=== PATIENT | female | born 1990 | race Caucasian/White ===

== ENCOUNTER 2024-05-31 08:31 | Inpatient (IN) | payer MEDICAID, OTHER ==
[~2024-05-31] VITALS: Ht 165.1 cm; Wt 61.7 kg
[2024-05-31] MEDS: ONDANSETRON HCL 4 MG/2 ML VIAL IV ONE ×2 (08:48→10:18)
[2024-05-31] MEDS: PANTOPRAZOLE 40 MG/10 ML VIAL INJ IV ONE (08:48)
[2024-05-31] MEDS: SODIUM CHLORIDE 0.9% 1,000 ML IV ONE ×2 (08:55→10:42)
[2024-05-31] MEDS: MORPHINE SULFATE 4 MG/ML SYR/VIAL IV ONE ×2 (08:55→10:20)
[2024-05-31 08:57] VITALS: PULSE 61; RESP 16; O2SAT 98
[2024-05-31 09:09] LABS: Basophils # (auto) 0 10 ^3/uL (0-0.2); Basophils % (auto) 0.5 % (0.0-2.0); Eosinophils # (auto) 0.2 10 ^3/uL (0-0.8); Eosinophils % (auto) 1.6 % (0.0-7.0); Hematocrit 39.7 % (36.0-46.0); Hemoglobin 13.9 g/dL (12.2-16.2); Lymphocytes # (auto) 2.7 10 ^3/uL (0.4-5.4); Lymphocytes % (auto) 25.6 % (10.0-50.0); Mean Corpuscular Hemoglobin 33.5 pg (28.0-32.0); Mean Corpuscular Volume 95.8 fL (80.0-100.0); Monocytes # (auto) 0.7 10 ^3/uL (0-1.3); Monocytes % (auto) 6.7 % (0.0-12.0); Neutrophils % (auto) 65.6 % (37.0-80.0); Nucleated Red Blood Cells % 0.2 %; Platelet Count (auto) 266 10^3/uL (140-450); Red Blood Cells 4.14 10^6/uL (4.0-5.20); Red Cell Distribution Width 14.1 % (11.8-14.3); White Blood Cell 10.7 10^3/uL (4.4-10.8)
[2024-05-31 09:10] VITALS: PULSE 65; RESP 22; O2SAT 100
[2024-05-31 09:19] LABS: Urine Bacteria FEW /hpf (None Seen); Urine Blood 2+ /uL (Negative); Urine Clarity Turbid (Clear); Urine Color Light-Orange (Yellow); Urine Mucus FEW (None Seen); Urine Protein, UAD 1+ (Negative); Urine Specific Gravity 1.022 (1.001-1.035); Urine Squamous Epithelial Cell MANY /hpf (<5); Urine Urobilinogen Normal (Negative); Urine WBC 19 /HPF (0-5); Urine pH 7.5 (5.0-9.0)
[2024-05-31 09:26] LABS: Albumin 4.2 g/dL (3.2-4.8); Alkaline Phosphatase 77 U/L (46-116); Anion Gap 9 (5-15); BUN/Creatinine Ratio 10.9 (10.0-20.0); Bilirubin, Total 0.9 mg/dL (0.2-1.0); Calcium 9.1 mg/dL (8.7-10.4); Carbon Dioxide 22 mmol/L (20-31); Sodium 140 mmol/L (136-145); Total Protein 6.4 g/dL (5.7-8.2)
[2024-05-31 09:27] LABS: Alanine Aminotransferase < 9 U/L (7-40); Aspartate Aminotransferase 11 U/L (13-40); Blood Urea Nitrogen 7 mg/dL (9-23); Chloride 109 mmol/L (98-107); Glucose 117 mg/dL (74-106); Potassium 2.6 mmol/L (3.5-5.1)
[2024-05-31 09:34] LABS: Lipase 954 U/L (12-53)
--- NOTE | 2024-05-31 09:39 | ED.PDOC ---
History of Present Illness HPI Comments 34 y/o F is BIBA with c/o epigastric abdominal pain, nausea, and vomiting, today. Patient reports sudden and unprovoked onset of symptoms, last night. Patient reports pain radiating to her back, directly. She comments on history of current hiatal hernia and suspects it being cause of underlying current pain. Patient denies having any diarrhea, urinary symptoms, fever, chills, or other associated symptoms or modifiers at this time. Chief Complaint: Abdominal Pain Time Seen by MD: 08:40 Primary Care Provider: UNKNOWN Reviewed Notes: Nurses Notes, Medications, Allergies Allergies: Coded Allergies: NO KNOWN ALLERGIES (Unverified , 05/31/24) Information Source: Patient Mode of Arrival: EMS Severity: Moderate Timing: Hours Duration: Since onset Prehospital treatment: 12 Lead EKG, Wireless Sales Representative, Other (4mg Zofran IV; 20G IV LAC ) Past Medical History Past Medical History (Other): current hiatal hernia Surgical History (Other): right hip surgery x3 CLINICAL ACADEMIC ALLERGIST History: Denies all CLINICAL ACADEMIC ALLERGIST Hx Family History Family History: Unknown Social History Smoker: Non-Smoker Alcohol: Denies ETOH Use Drugs: Denies Drug Use Lives In: Home All Other Systems: Reviewed and Negative (Comprehensive systems review obtained and negative except for what is stated in the HPI.) Physical Exam General Appearance: No Apparent Distress, Normal HEENT: Normal ENT Inspection, Pharynx Normal, TMs Normal Neck: Full Range of Motion, Non-Tender, Normal, Normal Inspection Respiratory: Chest Non-Tender, Lungs Clear, No Accessory Muscle Use, No Re spiratory Distress, Normal Breath Sounds Cardiovascular: No Edema, No JVD, No Murmur, No Gallop, Normal Peripheral Pulses, Regular Rate/Rhythm Breast Exam: Deferred Gastrointestinal: Epigastric (tenderness ), No Organomegaly, No Pulsatile Mass, Normal Bowel Sounds, Soft, Tenderness (epigastric region ) Genitalia: Deferred Pelvic: Deferred Rectal: Deferred Extremities: No calf tenderness, Normal capillary refill, Normal inspection, Normal range of motion, Non-tender, No pedal edema Musculoskeletal : Apperance: Normal Neurologic: Alert, manager services II-XII nml as Tested, No Motor Deficits, Normal Affect, Normal Mood, No Sensory Deficits Cerebellar Function: Normal Reflexes: Normal Skin: Dry, Normal Color, Warm Lymphatic: No Adenopathy Was a procedure done? Was a procedure done?: No Differential Dx Considerations may include: incarcerated hiatal hernia, gastritis, gastroenteritis, GERD, PUD, cholelithiasis, cholecystitis, viral syndrome, spoiled food, , among others X-Ray, Labs, Meds, VS Vital Signs Date Time Temp Pulse Resp B/P (MAP) Pulse Ox O2 Delivery O2 Flow Rate FiO2 05/31/24 10:20 60 20 132/80 05/31/24 09:25 65 22 136/80 05/31/24 09:10 65 22 100 Room Air* 0 21 05/31/24 08:57 61 16 98 Room Air* 0 21 05/31/24 08:55 61 16 128/92 05/31/24 08:44 61 16 128/92 (104) 98 05/31/24 08:34 98.9 101 22 146/73 (97) 97 98.9 Lab Test 05/31/24 08:56 05/31/24 08:30 Range/Units White Blood Count 10.7 4.4-10.8 10^3/uL Red Blood Count 4.14 4.0-5.20 10^6/uL Hemoglobin 13.9 12.2-16.2 g/dL Hematocrit 39.7 36.0-46.0 % Mean Corpuscular Volume 95.8 80.0-100.0 fL Mean Corpuscular Hemoglobin 33.5 H 28.0-32.0 pg Mean Corpuscular Hemoglobin Concent 35.0 32.0-36.0 g/dL Red Cell Distribution Width 14.1 11.8-14.3 % Platelet Count 266 140-450 10^3/uL Mean Platelet Volume 7.2 6.9-10.8 fL Neutrophils (%) (Auto) 65.6 37.0-80.0 % Lymphocytes (%) (Auto) 25.6 10.0-50.0 % Monocytes (%) (Auto) 6.7 0.0-12.0 % Eosinophils (%) (Auto) 1.6 0.0-7.0 % Basophils (%) (Auto) 0.5 0.0-2.0 % Neutrophils # (Auto) 7.0 1.6-8.6 10 ^3/uL Lymphocytes # (Auto) 2.7 0.4-5.4 10 ^3/uL Monocytes # (Auto) 0.7 0-1.3 10 ^3/uL Eosinophils # (Auto) 0.2 0-0.8 10 ^3/uL Basophils # (Auto) 0 0-0.2 10 ^3/uL Nucleated Red Blood Cells 0.2 % Sodium Level 140 136-145 mmol/L Potassium Level 2.6 L 3.5-5.1 mmol/L Chloride Level 109 H 98-107 mmol/L Carbon Dioxide Level 22 20-31 mmol/L Anion Gap 9 5-15 Blood Urea Nitrogen 7 L 9-23 mg/dL Creatinine 0.64 0.550-1.02 mg/dL Glomerular Filtration Rate Calc 118 >90 mL/min BUN/Creatinine Ratio 10.9 10.0-20.0 Serum Glucose 117 H 74-106 mg/dL Calcium Level 9.1 8.7-10.4 mg/dL Total Bilirubin 0.9 0.2-1.0 mg/dL Aspartate Amino Transferase (AST) 11 L 13-40 U/L Alanine Aminotransferase (ALT) < 9 7-40 U/L Alkaline Phosphatase 77 46-116 U/L Total Protein 6.4 5.7-8.2 g/dL Albumin 4.2 3.2-4.8 g/dL Lipase 954 H 12-53 U/L Urine Color Light-orange Yellow Urine Clarity Turbid H Clear Urine pH 7.5 5.0-9.0 Urine Specific [place] 1.022 1.001-1.035 Urine Protein 1+ H Negative Urine Ketones 1+ H Negative Urine Blood 2+ H Negative /uL Urine Nitrite Negative Negative Urine Bilirubin Negative Negative Urine Urobilinogen Normal Negative mg/dL Urine Leukocyte Esterase Negative Negative /uL Urine RBC 26 0 - 4 /hpf Urine Microscopic WBC 19 H 0-5 /HPF Urine Squamous Epithelial Cells Many <5 /hpf Urine Bacteria Few H None Seen /hpf Urine Mucus Few None Seen Urine Glucose Trace Normal mg/dL Current Medications Medications (Trade) Dose Ordered Sig/Moses Route Start Time Stop Time Status Last Admin Sodium Chloride 1,000 ml @ 1,000 mls/hr Q1H ONCE IV 05/31/24 08:45 05/31/24 09:44 DC 05/31/24 08:55 Ondansetron HCl (Zofran) 4 mg ONCE ONCE IV 05/31/24 08:45 05/31/24 08:46 DC 05/31/24 08:48 Morphine Sulfate 4 mg ONCE ONCE IV 05/31/24 08:45 05/31/24 08:46 DC 05/31/24 08:55 Pantoprazole Sodium (Protonix) 40 mg ONCE ONCE IV 05/31/24 08:45 05/31/24 08:46 DC 05/31/24 08:48 Sodium Chloride 1,000 ml @ 1,000 mls/hr Q1H ONCE IV 05/31/24 10:00 05/31/24 10:59 DC 05/31/24 10:42 Ondansetron HCl (Zofran) 4 mg ONCE ONCE IV 05/31/24 10:00 05/31/24 10:03 DC 05/31/24 10:18 Morphine Sulfate 4 mg ONCE ONCE IV 05/31/24 10:00 05/31/24 10:03 DC 05/31/24 10:20 Potassium Chloride 50 ml @ 25 mls/hr Q2H IV 05/31/24 10:45 05/31/24 18:44 05/31/24 10:43 [place] [address] Ph: [phone] DIAGNOSTIC IMAGING Diagnostic Imaging Report : [id number] Signed PATIENT: ELIESER ANDREWS ACCT: [id number] UNIT: [id number] : 1990 LOC: ER ROOM / BED: / AGE / SEX: 34 / F ADM STATUS: REG ER SERVICE [id number] ORDERING PHYSICIAN: ANTONIA NIELSEN MD PROCEDURE(s): ABPLIV - CT AB PEL WITH IV CON ONLY REASON: pancreatitis, severe abdominal pain ORDER NUMBER(s): [id number], ACCESSION NUMBER(s): [id number] Exam: CT CT AB PEL WITH IV CON ONLY History: pancreatitis, severe abdominal pain TECHNIQUE: Multiple contiguous axial CT images of the abdomen and pelvis were obtained with intravenous contrast. The images were reformatted to generate coronal and sagittal reconstructions. 100 cc of Omnipaque 350 contrast was injected intravenously. All CT scans at this medical facility are performed using dose modulation summer hniques as appropriate to a performed exam including the following:Automated exposure control was utilized; adjustment of the MA and/or KV according to patient size; and use of iterative reconstruction technique. Radiation Dose Information: CT Dose: CTDI volume is 8 mGy. Dose-length product is 439 mGy*cm Comparison: None FINDINGS: There is fat stranding and free fluid surrounding the pancreas compatible with acute pancreatitis. There is no evidence of organized fluid collection to suggest abscess. There is no discrete pancreatic cyst. Gallbladder is contracted with small gallstones. There is mild fatty infiltration of the liver. The kidneys, adrenal glands, and spleen appear within normal limits. There is no evidence of abdominal lymphadenopathy. There is small amount of free fluid in the abdomen tracking inferiorly from pancreas. There is no free intraperitoneal air. The stomach grossly appears unremarkable. The small and large bowel loops demonstrate normal caliber and distribution. The appendix is not seen in the right lower quadrant abdomen. There are no secondary signs of acute appendicitis. The abdominal aorta and IVC appear within normal limits. The bladder appears within normal limits the degree of distention. Uterus appears within normal limits. There is a 3.2 cm left ovarian cyst. There is no evidence of a pelvic mass or lymphadenopathy. There is no free fluid collection. Lung bases are clear. There is no acute osseous abnormality. IMPRESSION: 1. Findings consistent with acute pancreatitis. There is no evidence of organized fluid collection to suggest abscess. 2. Cholelithiasis. 3. Mild fatty infiltration of the liver. 4. 3.2 cm left ovarian cyst. HS:Y ATED BY: MICHEL HART MD DICTATED DATE/TIME: 05/31/24 105 SIGNED BY: MICHEL HART MD SIGNED DATE/TIME: 05/31/24 105 CC: Time of 1ST Reevaluation: 09:10 Reevaluation 1ST: Unchanged Patient Education/Counseling: Diagnosis, Treatment Family Education/Counseling: No Family Present Additional Information Previous medical encounters reviewed: n/a The following tests were ordered, and results were reviewed by me: lipase, UA, CMP, CBC Additional Information was gathered from interviewing the following independent historians: EMS I reviewed and agreed with the following test results read by other providers: n/a I discussed treatment and results with medical personnel and: Patient Departure 1 Departure Time of Disposition: 11:43 (Patient presented with abdominal pain that was concerning for possible appendicits, gastritis, cholecystitis, colitis, gastr oenteritis, sbo, or orther possible surgical emergency. Data: 1. I ordered and reviewed the result of at least 3 labs including a CBC, BMP, and Urinalysis. 2. I independently interpreted the following tests: CT Abdoment and Pelvis is concerning for acute pancreatitis .Risk:This patient has a high risk of morbidity due to further diagnostic testing or treatment and may suffer from an acute abdominal process disorder. Workup reveals acute pancreatitis and patient should be admitted for further workup. and possible expert consultation. ) Impression: Primary Impression: Acute pancreatitis Qualified Codes: K85.90 - Acute pancreatitis without necrosis or infection, unspecified Additional Impression: Epigastric pain Disposition: ADMITTED INPATIENT Admit to: Med Surg Condition: Serious Critical Care Note Critical Care Time?: Yes Critical care comment: Intractable abdominal pain Authorized and Performed by: Antonia Nielsen MD Total critical care time: Approximately 39 minutes Due to a high probability of clinically significant, life threatening deterioration, the patient required my highest level of preparedness to intervene emergently and I personally spent this critical care time directly and personally managing the patient. This critical care time included obtaining a history; examining the patient; pulse oximetry; ordering and review of studies; arranging urgent treatment with development of a management plan; evaluation of patient's response to treatment; frequent reassessment; and, discussions with other providers. This critical care time was performed to assess and manage the high probability of imminent, life-threatening deterioration that could result in multi-organ failure. It was exclusive of separately billable procedures and treating other patients and teaching time. Please see my other sections and the rest of the note for further information on patient assessment and treatment. Stability Stability form required: No Heart Score Heart Score: Heart Score Response (Comments) Value History N/A 0 EKG N/A 0 Age N/A 0 Risk Factors N/A 0 Troponin N/A 0 Total 0 I personally scribed for ANTONIA NIELSEN MD ([email or web address]) on 05/31/24 at 09:39. Electronically submitted by Raji Wheat ([email or web address]). I personally scribed for ANTONIA NIELSEN MD ([email or web address]) on 05/31/24 at 11:13. Electronically submitted by Raji Wheat ([email or web address]). ANTONIA NIELSEN MD May 31, 2024 09:39
[2024-05-31] MEDS ORDERED: POTASSIUM CHL 20MEQ/100ML 100 ML IV SCH (10:00)
[2024-05-31] MEDS ORDERED: POTASSIUM CHL 20MEQ/100ML 50 ML IV SCH (10:15)
[2024-05-31] MEDS ORDERED: SODIUM CHL 0.9% 100 ML IV SCH (10:30)
[2024-05-31] MEDS ORDERED: POTASSIUM CHL 20MEQ/50ML 50 ML IV SCH ×2 (10:30)
[2024-05-31] MEDS: POTASSIUM CHL 20MEQ/50ML 50 ML IV SCH (10:43)
--- NOTE | 2024-05-31 10:54 | DVH ---
Exam: CT CT AB PEL WITH IV CON ONLY History: pancreatitis, severe abdominal pain TECHNIQUE: Multiple contiguous axial CT images of the abdomen and pelvis were obtained with intraveno us contrast. The images were reformatted to generate coronal and sagittal reconstructions. 100 cc of Omnipaque 350 contrast was injected intravenously. All CT scans at this medical facility are performed using dose modulation techniques as appropriate t o a performed exam including the following:Automated exposure control was utilized; adjustment of the MA and/or KV according to patient size; and use of iterative reconstruction technique. Radiation Dose Information: CT Dose: CTDI volume is 8 mGy. Dose-length product is 439 mGy*cm Comparison: None FINDINGS: There is fat stranding and free fluid surrounding the pancreas compatible with acute pancreatitis. Th ere is no evidence of organized fluid collection to suggest abscess. There is no discrete pancreatic cyst. Gallbladder is contracted with small gallstones. There is mild fatty infiltration of the liver. The kidneys, adrenal glands, and spleen appear within normal limits. There is no evidence of abdominal lymphadenopathy. There is small amount of free fluid in the abdomen tracking inferiorly from pancreas. There is no free intraperitoneal air. The stomach grossly appears unremarkable. The small and large bowel loops demonstrate normal caliber and distribution. The appendix is not seen in the right lower quadrant abdomen. There are no seconda ry signs of acute appendicitis. The abdominal aorta and IVC appear within normal limits. The bladder appears within normal limits the degree of distention. Uterus appears within normal limit s. There is a 3.2 cm left ovarian cyst. There is no evidence of a pelvic mass or lymphadenopathy. The re is no free fluid collection. Lung bases are clear. There is no acute osseous abnormality. IMPRESSION: 1. Findings consistent with acute pancreatitis. There is no evidence of organized fluid collection to suggest abscess. 2. Cholelithiasis. 3. Mild fatty infiltration of the liver. 4. 3.2 cm left ovarian cyst. HS:Y
[2024-05-31] MEDS: KETOROLAC TROMETH 30 MG/ML 1ML VIAL IV ONE (12:37)
[2024-05-31] MEDS ORDERED: ONDANSETRON HCL 4 MG/2 ML VIAL IV PRN (13:15)
[2024-05-31] MEDS: SODIUM CHLORIDE 0.9% 1,000 ML IV SCH (13:15)
[2024-05-31] MEDS ORDERED: DOCUSATE SOD 100 MG CAP PO PRN (13:15)
[2024-05-31] MEDS ORDERED: METOCLOPRAMIDE HCL 5MG/ml INJ 2ml VIAL IV PRN (13:30)
--- NOTE | 2024-05-31 13:31 | DVHHP2 ---
History of Present Illness Reason for Visit: Abdominal Pain History of Present Illness Dina Muller is a 34-year-old female with past medical history of hiatal hernia, who came in with complaints of abdominal pain. Patient states her abdominal pain came on suddenly last night. The pain radiates to her back and she is having associated nausea and vomiting. Patient states she thought the pain was caused from her hiatal hernia. CT of abdomen was completed in ER. It shows acute pancreatitis. Patient states she has been unable to eat or hold anything down since yesterday. Past Surgical History: Other (right hip surgeries x 3) Smoke: <1 pack per day ALCOHOL: rare Drugs: None Lives: with Family Domestic Violence: Neg Review of Systems Constitutional: No: Fever, Chills, Sweats, Weakness, Malaise, Other Eyes: No: Pain, Vision change, Conjunctivae inflammation, Eyelid inflammation, Other, Redness ENT: No: Ear pain, Ear discharge, Nose pain, Nose discharge, Nose congestion, Mouth pain, Mouth swelling, Throat pain, Throat swelling, Other Respiratory: No: Cough, Dry, Shortness of breath, SOB with excertion, Wheezing, Hemoptysis, Pleuritic Pain, Sputum, Wheezing, Other Cardiovascular: No: Chest Pain, Palpitations, Orthopnea, Paroxysmal Noc. Dyspnea, Edema, Lt Headedness, Other Gastrointestinal: Nausea, Vomiting, Abdominal Pain; No: Diarrhea, Constipation, Melena, Hematochezia, Other Genitourinary: No Dysuria, No Frequency, No Incontinence, No Hematuria, No Retention, No Other Musculoskeletal: No: other, neck pain, shoulder pain, arm pain, back pain, hand pain, leg pain, foot pain Skin: No: Rash, Lesions, Jaundice, Bruising, Other Neurological: No: Weakness, Numbness, Incoordination, Change in speech, Confusion, Seizures, Other Allergies: Coded Allergies: NO KNOWN ALLERGIES (Unverified , 05/31/24) Medications Current Medications Medications Dose Ordered Sig/Moses Route Start Time Stop Time Status Last Admin Dose Admin Sodium Chloride 100 ml @ 50 mls/hr Q2H IV 05/31/24 10:30 05/31/24 18:29 Cancel Potassium Chloride 50 ml @ 25 mls/hr Q2H IV 05/31/24 10:30 05/31/24 18:29 Cancel Potassium Chloride 50 ml @ 25 mls/hr Q2H IV 05/31/24 10:45 05/31/24 18:44 05/31/24 12:50 25 MLS/HR Sodium Chloride 1,000 ml @ 100 mls/hr Q10H IV 05/31/24 13:15 UNV Ondansetron HCl 4 mg Q4HP PRN IV 05/31/24 13:15 UNV Docusate Sodium 100 mg BIDPRN PRN PO 05/31/24 13:15 UNV Metoclopramide HCl 10 mg Q6HPRN PRN IV 05/31/24 13:30 UNV Pantoprazole Sodium 40 mg DAILY IV 06/01/24 10:00 UNV Exam Vital Signs Vital Signs Date Time Temp Pulse Resp B/P (MAP) Pulse Ox O2 Delivery O2 Flow Rate FiO2 05/31/24 12:00 98.8 57 14 135/81 (99) 98 98.8 05/31/24 09:10 Room Air* 0 21 General Appearance: Alert, Oriented X3, Cooperative, moderate distress HEENT: Atraumatic, PERRLA Respiratory: Clear to auscultation, Normal air movement Cardiovascular: Regular rate, Normal S1, Normal S2 Abdominal: Soft, No hepatospenomegaly, Other (severe abdominal pain) Extremities: No clubbing, No cyanosis, No edema, Normal pulses, No tenderness/swelling Skin: No rashes, No breakdown, No significant lesion Neuro: Normal gait, Normal speech, Strength at 5/5 X4 ext, Normal tone Psych/Mental Status: Mental status NL, Mood NL Labs/Xrays Labs Test 05/31/24 08:56 05/31/24 08:30 Range/Units White Blood Count 10.7 4.4-10.8 10^3/uL Red Blood Count 4.14 4.0-5.20 10^6/uL Hemoglobin 13.9 12.2-16.2 g/dL Hematocrit 39.7 36.0-46.0 % Mean Corpuscular Volume 95.8 80.0-100.0 fL Mean Corpuscular Hemoglobin 33.5 H 28.0-32.0 pg Mean Corpuscular Hemoglobin Concent 35.0 32.0-36.0 g/dL Red Cell Distribution Width 14.1 11.8-14.3 % Platelet Count 266 140-450 10^3/uL Mean Platelet Volume 7.2 6.9-10.8 fL Neutrophils (%) (Auto) 65.6 37.0-80.0 % Lymphocytes (%) (Auto) 25.6 10.0-50.0 % Monocytes (%) (Auto) 6.7 0.0-12.0 % Eosinophils (%) (Auto) 1.6 0.0-7.0 % Basophils (%) (Auto) 0.5 0.0-2.0 % Neutrophils # (Auto) 7.0 1.6-8.6 10 ^3/uL Lymphocytes # (Auto) 2.7 0.4-5.4 10 ^3/uL Monocytes # (Auto) 0.7 0-1.3 10 ^3/uL Eosinophils # (Auto) 0.2 0-0.8 10 ^3/uL Basophils # (Auto) 0 0-0.2 10 ^3/uL Nucleated Red Blood Cells 0.2 % Sodium Level 140 136-145 mmol/L Potassium Level 2.6 L 3.5-5.1 mmol/L Chloride Level 109 H 98-107 mmol/L Carbon Dioxide Level 22 20-31 mmol/L Anion Gap 9 5-15 Blood Urea Nitrogen 7 L 9-23 mg/dL Creatinine 0.64 0.550-1.02 mg/dL Glomerular Filtration Rate Calc 118 >90 mL/min BUN/Creatinine Ratio 10.9 10.0-20.0 Serum Glucose 117 H 74-106 mg/dL Calcium Level 9.1 8.7-10.4 mg/dL Total Bilirubin 0.9 0.2-1.0 mg/dL Aspartate Amino Transferase (AST) 11 L 13-40 U/L Alanine Aminotransferase (ALT) < 9 7-40 U/L Alkaline Phosphatase 77 46-116 U/L Total Protein 6.4 5.7-8.2 g/dL Albumin 4.2 3.2-4.8 g/dL Lipase 954 H 12-53 U/L Urine Color Light-orange Yellow Urine Clarity Turbid H Clear Urine pH 7.5 5.0-9.0 Urine Specific [place] 1.022 1.001-1.035 Urine Protein 1+ H Negative Urine Ketones 1+ H Negative Urine Blood 2+ H Negative /uL Urine Nitrite Negative Negative Urine Bilirubin Negative Negative Urine Urobilinogen Normal Negative mg/dL Urine Leukocyte Esterase Negative Negative /uL Urine RBC 26 0 - 4 /hpf Urine Microscopic WBC 19 H 0-5 /HPF Urine Squamous Epithelial Cells Many <5 /hpf Urine Bacteria Few H None Seen /hpf Urine Mucus Few None Seen Urine Glucose Trace Normal mg/dL Exam: CT CT AB PEL WITH IV CON ONLY FINDINGS: There is fat stranding and free fluid surrounding the pancreas compatible with acute pancreatitis. There is no evidence of organized fluid collection to suggest abscess. There is no discrete pancreatic cyst. Gallbladder is contracted with small gallstones. There is mild fatty infiltration of the liver. The kidneys, adrenal glands, and spleen appear within normal limits. There is no evidence of abdominal lymphadenopathy. There is small amount of free fluid in the abdomen tracking inferiorly from pancreas. There is no free intraperitoneal air. The stomach grossly appears unremarkable. The small and large bowel loops demonstrate normal caliber and distribution. The appendix is not seen in the right lower quadrant abdomen. There are no secondary signs of acute appendicitis. The abdominal aorta and IVC appear within normal limits. The bladder appears within normal limits the degree of distention. Uterus appears within normal limits. There is a 3.2 cm left ovarian cyst. There is no evidence of a pelvic mass or lymphadenopathy. There is no free fluid collection. Lung bases are clear. There is no acute osseous abnormality. IMPRESSION: 1. Findings consistent with acute pancreatitis. There is no evidence of organized fluid collection to suggest abscess. 2. Cholelithiasis. 3. Mild fatty infiltration of the liver. 4. 3.2 cm left ovarian cyst. Assessment/Plan Assessment/Plan Assessment: Acute pancreatitis, Hypokalemia, Fatty liver, Cholelithiasis, Plan: Admit to Med-Surg, IV hydration, NPO except ice chips, Pain management, Manage/Monitor electrolytes closely, Start Protonix IV, Plan discussed with: Patient My Orders Orders - JOSÉ MANUEL CEDENO Procedure Category Date Status Time Amylase LAB 05/31/24 In Process 12:15 Admit ADMIT 05/31/24 Transmitted 13:13 Code Status CODE 05/31/24 Transmitted 13:13 Sodium Chloride 0.9% PHA 05/31/24 Logged 13:15 Ondansetron Hcl PHA 05/31/24 Logged (Zofran) 13:15 Docusate Sodium PHA 05/31/24 Logged Capsule (Colace 13:15 Complete Blood Count LAB 06/01/24 Verified 04:00 Comprehensive LAB 06/01/24 Verified Metabolic Panel 04:00 Condition: Serious KEENAN 05/31/24 In Process 13:13 Npo Except Ice Chips ORDERS 05/31/24 Transmitted 13:13 Potassium LAB 05/31/24 Logged 14:00 Magnesium LAB 05/31/24 Logged 14:00 Metoclopramide PHA 05/31/24 Logged Injection (Reglan 13:30 Pantoprazole PHA 06/01/24 Logged (Protonix) 10:00 Date of Service: May 31, 2024 Billing Provider: JOSÉ MANUEL CEDENO Common Visit Codes: [id number] INP/OBS CARE (MOD) JOSÉ MANUEL CEDENO May 31, 2024 13:31
[2024-05-31 14:22] LABS: Potassium 4.1 mmol/L (3.5-5.1)
[2024-05-31 14:29] LABS: Magnesium 1.6 mg/dL (1.6-2.6)
[2024-05-31 16:36] VITALS: BP 135/85; PULSE 65; RESP 18; TEMP 98.1; O2SAT 94; O2SAT 97
[2024-05-31] MEDS: KETOROLAC TROMETH 30 MG/ML 1ML VIAL IV PRN (16:57)
[2024-05-31 17:00] VITALS: BP 135/85; PULSE 65; RESP 17; TEMP 99.1; O2SAT 97
[2024-05-31] MEDS: MAGNESIUM SULFATE 1GM/100ML 100 ML IV SCH ×2 (18:00→22:35)
[2024-05-31 20:00] VITALS: PULSE 65; RESP 17; O2SAT 97
[2024-05-31 21:00] VITALS: BP 137/73; PULSE 62; RESP 17; TEMP 98.9; O2SAT 98
[2024-05-31] MEDS: MORPHINE SULFATE INJ 2 MG/ml SYRG IM ONE (21:25)
[2024-05-31] MEDS: MORPHINE SULFATE INJ 2 MG/ml SYRG IV ONE (21:26)
[2024-06-01] VITALS (7 sets, daily range): BP systolic 112–146; BP diastolic 70–87; PULSE 70–93; RESP 17–18; TEMP 97.6–99.4; O2SAT 94–99
[2024-06-01] MEDS: MORPHINE SULFATE INJ 2 MG/ml SYRG IV PRN (01:10)
[2024-06-01 08:05] LABS: Albumin 3.5 g/dL (3.2-4.8); Alkaline Phosphatase 64 U/L (46-116); Anion Gap 8 (5-15); BUN/Creatinine Ratio 12.7 (10.0-20.0); Calcium 8.8 mg/dL (8.7-10.4); Carbon Dioxide 22 mmol/L (20-31); Magnesium 2.3 mg/dL (1.6-2.6); Potassium 3.6 mmol/L (3.5-5.1); Sodium 140 mmol/L (136-145)
[2024-06-01 08:06] LABS: Alanine Aminotransferase < 9 U/L (7-40); Aspartate Aminotransferase 13 U/L (13-40); Bilirubin, Total 0.6 mg/dL (0.2-1.0); Blood Urea Nitrogen 8 mg/dL (9-23); Chloride 110 mmol/L (98-107); Glucose 73 mg/dL (74-106); Total Protein 5.4 g/dL (5.7-8.2)
[2024-06-01 08:07] LABS: Basophils # (auto) 0 10 ^3/uL (0-0.2); Basophils % (auto) 0.2 % (0.0-2.0); Eosinophils # (auto) 0.1 10 ^3/uL (0-0.8); Eosinophils % (auto) 1.5 % (0.0-7.0); Hematocrit 36.9 % (36.0-46.0); Hemoglobin 12.7 g/dL (12.2-16.2); Lymphocytes # (auto) 1.3 10 ^3/uL (0.4-5.4); Lymphocytes % (auto) 13.1 % (10.0-50.0); Mean Corpuscular Hemoglobin 35.7 pg (28.0-32.0); Mean Corpuscular Hgb Conc. 34.4 g/dL (32.0-36.0); Monocytes # (auto) 0.7 10 ^3/uL (0-1.3); Monocytes % (auto) 7.2 % (0.0-12.0); Neutrophils # (auto) 7.5 10 ^3/uL (1.6-8.6); Nucleated Red Blood Cells % 0.3 %; Platelet Count (auto) 210 10^3/uL (140-450); Red Blood Cells 3.55 10^6/uL (4.0-5.20); Red Cell Distribution Width 14.1 % (11.8-14.3); White Blood Cell 9.6 10^3/uL (4.4-10.8)
[2024-06-01] MEDS: PANTOPRAZOLE 40 MG/10 ML VIAL INJ IV SCH (08:41)
[2024-06-01] MEDS: HYDROmorphone HCL 2 MG/ML VL/or syr IV ONE (12:42)
[2024-06-01] MEDS: LACTATED RINGER'S 1,000 ML IV SCH (12:53)
--- NOTE | 2024-06-01 15:55 | DVHPNRES ---
Progress Note Date Seen: Jun 01, 2024 Resident Creating Document: NUVIA YADAV RESIDENT Medical Necessity Reason Pt with a Central, PICC or Fol: No Subjective Review of Systems Patient is 34 years old female with past medical history of hiatal hernia came with a complaint of abdominal pain. As per patient patient started on Friday night which got worse on the Friday morning, sharp knife-like, 9/10, radiating to the back, associated with nausea and vomiting. Vomiting was mainly yellow fluid content, no blood, patient denied any fever, dysuria acute joint pain or swelling. Significant initial lab workup revealed lipase 954, potassium 2.6, CT abdomen-1. Findings consistent with acute pancreatitis. There is no evidence of organized fluid collection to suggest abscess.2. Cholelithiasis.3. Mild fatty infiltration of the liver. 4. 3.2 cm left ovarian cyst. PMH-hiatal hernia PSH- right hip surgery, Allergy- NKDA Personal History/ Social History- lives with kids, smoker, smokes marijuana, alcoholic Patient was seen today at the bedside. Cardiovascular- deny acute chest pain or shortness of breath or cough or palpitation Respiratory denies cough or short of breath or wheezing Musculoskeletal-denies acute joint swelling or tenderness or redness Neurological- denies acute dysarthria, dysphagia, change in vision Psychiatry- denies depression or SI or HI Skin- denies acute rash or purpura Patient was seen today for clinical evaluation. Labs and chart reviewed.Significant initial lab workup revealed lipase 954, potassium 2.6, CT abdomen-1. Findings consistent with acute pancreatitis. There is no evidence of organized fluid collection to suggest abscess.2. Cholelithiasis.3. Mild fatty infiltration of the liver. 4. 3.2 cm left ovarian cyst. Patient reported pain is improving for slowly, patient was put on clear liquid diet. Objective vital signs Vital Sign Date Time Temp Pulse Resp B/P (MAP) Pulse Ox O2 Delivery O2 Flow Rate FiO2 06/01/24 13:00 97.6 91 18 146/86 (106) 99 97.6 05/31/24 20:00 Room Air* 0 21 Total Intake and Output 05/31/24 05/31/24 06/01/24 15:00 23:00 07:00 Intake Total 2024 ml 0 ml 200 ml Balance 2024 ml 0 ml 200 ml medications Current Medications Medications Dose Ordered Sig/Moses Route Start Time Stop Time Status Last Admin Dose Admin Sodium Chloride 100 ml @ 50 mls/hr Q2H IV 05/31/24 10:30 05/31/24 18:29 Cancel Potassium Chloride 50 ml @ 25 mls/hr Q2H IV 05/31/24 10:30 05/31/24 18:29 Cancel Ondansetron HCl 4 mg Q4HP PRN IV 05/31/24 13:15 Docusate Sodium 100 mg BIDPRN PRN PO 05/31/24 13:15 Metoclopramide HCl 10 mg Q6HPRN PRN IV 05/31/24 13:30 Pantoprazole Sodium 40 mg DAILY IV 06/01/24 10:00 06/01/24 08:41 40 MG Ketorolac Tromethamine 30 mg Q6HPRN PRN IV 05/31/24 14:30 06/05/24 14:29 06/01/24 08:43 30 MG Morphine Sulfate 2 mg Q4HPRN PRN IV 05/31/24 21:00 06/01/24 08:42 2 MG Lactated Ringer's 1,000 ml @ 100 mls/hr Q10H IV 06/01/24 10:45 06/01/24 12:53 100 MLS/HR Examination General examination- awake, alert, oriented HEENT- PEERLA, no acute nasal discharge Cardiovascular- S1-S2 audible, rate and rhythm regular, no murmur Respiratory- CTAB, no wheeze or rhonchi Gastrointestinal-tender abdomen ++, bowel sound+. Nondistended Musculoskeletal-no acute joint swelling or tenderness or redness Lower extremity- no leg edema Neurological- cranial nerves intact, no acute dysarthria or dysphagia Psychiatry- denies depression or SI or HI Skin- no acute rash or purpura laboratory and microbiology Laboratory Tests 06/01/24 06:07 Test 06/01/24 06:07 Range/Units Serum Glucose 73 L 74-106 mg/dL Problem List/Assessment/Plan Problem List/Assessment/Plan Assessment and plan # acute abdominal pain likely due to acute pancreatitis # acute pancreatitis -continue pantoprazole 40 mg IV daily -continue IV fluid as prescribed -continue pain medication as prescribed # hypokalemia, supplemented -monitor BMP # cholelithiasis, no acute cholecystitis -monitored clinically -plan is to do outpatient surgical follow up # fatty liver likely due to alcoholism -patient was counseled about the effect of alcoholism on health # ovarian cyst -outpatient follow up with Gynecology and solid waste collector # substance abuse marijuana, alcoholism -patient was counseled about the effect of alcoholism, substance abuse # smoker -patient was counseled about the effect of smoking on health # history of hiatal hernia -outpatient surgery follow up Goals of care, Code status ; discussed with >15 minutes PUD prophylaxis: DVT prophylaxis: Plan discussed with Dr. Jimenez , nursing staff, Total time spent on patient evaluation, chart review, assessment and plan, discussion discussion >35 minutes Plan discussed with: Patient, Other (RN, Boy friend) My Orders My Orders Orders - NUVIA YADAV Procedure Category Date Status Time Lactated Ringer's PHA 06/01/24 In Process 10:45 Drug Screen LAB 06/01/24 Logged 11:46 Clear Liq Diet DIET 06/01/24 Transmitted Lunch NUVIA YADAV RESIDENT Jun 01, 2024 15:55
[2024-06-01 16:27] LABS: LDL Cholesterol 46 mg/dL (< 100); Triglycerides 115 mg/dL (< 150)
[2024-06-01 16:29] LABS: Cholesterol 98 mg/dL (< 200)
[2024-06-01 16:32] LABS: HDL Cholesterol 37 mg/dL (40-59)
[2024-06-02] VITALS (8 sets, daily range): BP systolic 119–132; BP diastolic 68–80; PULSE 71–96; RESP 16–19; TEMP 97.4–99.8; O2SAT 94–98
[2024-06-02 07:29] LABS: Albumin 3.6 g/dL (3.2-4.8); Alkaline Phosphatase 60 U/L (46-116); Anion Gap 10 (5-15); BUN/Creatinine Ratio 13.2 (10.0-20.0); Carbon Dioxide 21 mmol/L (20-31); Chloride 107 mmol/L (98-107); Magnesium 1.7 mg/dL (1.6-2.6); Sodium 138 mmol/L (136-145)
[2024-06-02 07:30] LABS: Bilirubin, Total 0.5 mg/dL (0.2-1.0)
[2024-06-02 07:39] LABS: Alanine Aminotransferase < 9 U/L (7-40); Aspartate Aminotransferase 11 U/L (13-40); Blood Urea Nitrogen 7 mg/dL (9-23); Calcium 8.6 mg/dL (8.7-10.4); Glucose 56 mg/dL (74-106); Total Protein 5.6 g/dL (5.7-8.2)
[2024-06-02 08:07] LABS: Basophils # (auto) 0 10 ^3/uL (0-0.2); Basophils % (auto) 0.3 % (0.0-2.0); Eosinophils # (auto) 0.3 10 ^3/uL (0-0.8); Eosinophils % (auto) 2.8 % (0.0-7.0); Hematocrit 37.2 % (36.0-46.0); Hemoglobin 12.8 g/dL (12.2-16.2); Lymphocytes # (auto) 1.4 10 ^3/uL (0.4-5.4); Lymphocytes % (auto) 13.7 % (10.0-50.0); Mean Corpuscular Hemoglobin 33.1 pg (28.0-32.0); Mean Corpuscular Hgb Conc. 34.4 g/dL (32.0-36.0); Mean Corpuscular Volume 96.3 fL (80.0-100.0); Monocytes # (auto) 0.8 10 ^3/uL (0-1.3); Monocytes % (auto) 7.8 % (0.0-12.0); Neutrophils # (auto) 7.5 10 ^3/uL (1.6-8.6); Neutrophils % (auto) 75.4 % (37.0-80.0); Nucleated Red Blood Cells % 0.1 %; Platelet Count (auto) 213 10^3/uL (140-450); Red Blood Cells 3.86 10^6/uL (4.0-5.20); Red Cell Distribution Width 13.8 % (11.8-14.3)
[2024-06-02] MEDS: MAGNESIUM SULFATE 1GM/100ML 100 ML IV SCH (10:12)
[2024-06-02] MEDS: POTASSIUM CHL 20MEQ/50ML 50 ML IV SCH (10:23)
[2024-06-02] MEDS: LACTATED RINGER'S 1,000 ML IV SCH (10:32)
[2024-06-02] MEDS: POTASSIUM CHL 20 Meq TABLET PO ONE (11:19)
--- NOTE | 2024-06-02 16:59 | DVHPNRES ---
Progress Note Date Seen: Jun 02, 2024 Resident Creating Document: NUVIA YADAV RESIDENT Medical Necessity Reason Pt with a Central, PICC or Fol: No Subjective Review of Systems Patient is 34 years old female with past medical history of hiatal hernia came with a complaint of abdominal pain. As per patient patient started on Friday night which got worse on the Friday morning, sharp knife-like, /10, radiating to the back, associated with nausea and vomiting. Vomiting was mainly yellow fluid content, no blood, patient denied any fever, dysuria acute joint pain or swelling. Significant initial lab workup revealed lipase 954, potassium 2.6, CT abdomen-1. Findings consistent with acute pancreatitis. There is no evidence of organized fluid collection to suggest abscess.2. Cholelithiasis.3. Mild fatty infiltration of the liver. 4. 3.2 cm left ovarian cyst. PMH-hiatal hernia PSH- right hip surgery, Allergy- NKDA Personal History/ Social History- lives with kids, smoker, smokes marijuana, alcoholic Patient was seen today at the bedside. Cardiovascular- deny acute chest pain or shortness of breath or cough or palpitation Respiratory denies cough or short of breath or wheezing Musculoskeletal-denies acute joint swelling or tenderness or redness Neurological- denies acute dysarthria, dysphagia, change in vision Psychiatry- denies depression or SI or HI Skin- denies acute rash or purpura Patient was seen today for clinical evaluation. Labs and chart reviewed. Patient still complaining of some pain with liquid diet. Ordered ultrasound of the abdomen to rule out common bile duct obstruction or any other pathology. c/o severe pain with liquid diet. ordered Ultrasound of abdomen. Objective vital signs Vital Sign Date Time Temp Pulse Resp B/P (MAP) Pulse Ox O2 Delivery O2 Flow Rate FiO2 06/02/24 16:39 98.4 83 19 132/73 (92) 95 98.4 06/02/24 08:00 Room Air* 0 21 Total Intake and Output 06/01/24 06/01/24 06/02/24 15:00 23:00 07:00 Intake Total 0 ml 600 ml Balance 0 ml 600 ml medications Current Medications Medications Dose Ordered Sig/Moses Route Start Time Stop Time Status Last Admin Dose Admin Sodium Chloride 100 ml @ 50 mls/hr Q2H IV 05/31/24 10:30 05/31/24 18:29 Cancel Potassium Chloride 50 ml @ 25 mls/hr Q2H IV 05/31/24 10:30 05/31/24 18:29 Cancel Ondansetron HCl 4 mg Q4HP PRN IV 05/31/24 13:15 Docusate Sodium 100 mg BIDPRN PRN PO 05/31/24 13:15 Metoclopramide HCl 10 mg Q6HPRN PRN IV 05/31/24 13:30 Pantoprazole Sodium 40 mg DAILY IV 06/01/24 10:00 06/02/24 08:26 40 MG Ketorolac Tromethamine 30 mg Q6HPRN PRN IV 05/31/24 14:30 06/05/24 14:29 06/01/24 08:43 30 MG Morphine Sulfate 2 mg Q4HPRN PRN IV 05/31/24 21:00 06/02/24 13:10 2 MG Lactated Ringer's 1,000 ml @ 100 mls/hr Q10H IV 06/02/24 10:32 Examination General examination- awake, alert, oriented HEENT- PEERLA, no acute nasal discharge Cardiovascular- S1-S2 audible, rate and rhythm regular, no murmur Respiratory- CTAB, no wheeze or rhonchi Gastrointestinal-tender abdomen ++, bowel sound+. Nondistended Musculoskeletal-no acute joint swelling or tenderness or redness Lower extremity- no leg edema Neurological- cranial nerves intact, no acute dysarthria or dysphagia Psychiatry- denies depression or SI or HI Skin- no acute rash or purpura laboratory and microbiology Laboratory Tests 06/02/24 06:15 Test 06/02/24 16:27 Range/Units Serum Glucose Pending Problem List/Assessment/Plan Problem List/Assessment/Plan Assessment and plan # acute abdominal pain likely due to acute pancreatitis # acute pancreatitis -continue pantoprazole 40 mg IV daily -continue IV fluid as prescribed -continue pain medication as prescribed - can not tolerate Liquid diet, c/o severe pain -ordered ultrasound of the upper abdomen # hypokalemia, supplemented -monitor BMP # cholelithiasis, no acute cholecystitis -monitored clinically -plan is to do outpatient surgical follow up # fatty liver likely due to alcoholism -patient was counseled about the effect of alcoholism on health # ovarian cyst -outpatient follow up with Gynecology and design printing machine setter # substance abuse marijuana, alcoholism -patient was counseled about the effect of alcoholism, substance abuse # smoker -patient was counseled about the effect of smoking on health # history of hiatal hernia -outpatient surgery follow up Goals of care, Code status ; discussed with >15 minutes PUD prophylaxis: Pantoprazole DVT prophylaxis: Lovenox Plan discussed with Dr. Jimenez , nursing staff, Total time spent on patient evaluation, chart review, assessment and plan, discussion discussion >35 minutes Plan discussed with: Patient, Other (RN) My Orders My Orders Orders - NUVIA YADAV RESIDENT Procedure Category Date Status Time Lactated Ringer's PHA 06/02/24 In Process 10:32 Communication Order ORDERS 06/02/24 Transmitted 10:35 Basic Metabolic Panel LAB 06/02/24 In Process 14:18 Abdomen Limited US 06/02/24 Logged 16:42 Clear Liq Diet DIET 06/02/24 Transmitted Dinner Communication Order ORDERS 06/02/24 Transmitted 16:47 Dietary Evaluation Review Comments: 1. On Full Liquid diet (06/02), further advance to Low-Fat diet as tolerated 2. Currently tolerating diet; encourage good oral intakes >75% of meals 3. If PO declines, add Ensure Clear BID (240 kcal, 8 gm pro, 0 gm fat) 4. Monitor GI sx/pain, treat accordingly 5. Continue to monitor weights, daily wt's appreciated Expected Outcomes/Goals: Resolution of acute pancreatitis, maintain adequate nutrition/weight. NUVIA YADAV RESIDENT Jun 02, 2024 16:59
[2024-06-02 17:16] LABS: Potassium 3.8 mmol/L (3.5-5.1); Sodium 139 mmol/L (136-145)
[2024-06-02 17:17] LABS: Anion Gap 11 (5-15); Calcium 9.4 mg/dL (8.7-10.4)
[2024-06-02 17:22] LABS: BUN/Creatinine Ratio 10.9 (10.0-20.0)
[2024-06-02 17:25] LABS: Blood Urea Nitrogen 6 mg/dL (9-23); Carbon Dioxide 19 mmol/L (20-31); Chloride 109 mmol/L (98-107); Glucose 62 mg/dL (74-106)
[2024-06-02] MEDS: ENOXAPARIN SOD 40 MG/0.4 ML SYRINGE SC ONE (18:05)
[2024-06-03 01:00] VITALS: BP 128/82; PULSE 82; RESP 18; TEMP 98.3; O2SAT 97
[2024-06-03 05:00] VITALS: BP 119/74; PULSE 66; RESP 18; TEMP 98.2; O2SAT 98
[2024-06-03 06:16] LABS: Eosinophils # (auto) 0.4 10 ^3/uL (0-0.8); Monocytes # (auto) 0.9 10 ^3/uL (0-1.3); Neutrophils # (auto) 6.5 10 ^3/uL (1.6-8.6)
[2024-06-03 06:19] LABS: Basophils # (auto) 0 10 ^3/uL (0-0.2); Basophils % (auto) 0.2 % (0.0-2.0); Eosinophils % (auto) 4.6 % (0.0-7.0); Hematocrit 35.2 % (36.0-46.0); Hemoglobin 12.4 g/dL (12.2-16.2); Lymphocytes # (auto) 1.5 10 ^3/uL (0.4-5.4); Mean Corpuscular Hemoglobin 34.6 pg (28.0-32.0); Mean Corpuscular Hgb Conc. 35.2 g/dL (32.0-36.0); Mean Corpuscular Volume 98.5 fL (80.0-100.0); Monocytes % (auto) 9.8 % (0.0-12.0); Neutrophils % (auto) 69.4 % (37.0-80.0); Nucleated Red Blood Cells % 0.2 %; Platelet Count (auto) 222 10^3/uL (140-450); Red Blood Cells 3.57 10^6/uL (4.0-5.20); Red Cell Distribution Width 13.7 % (11.8-14.3); White Blood Cell 9.4 10^3/uL (4.4-10.8)
[2024-06-03 06:31] LABS: Albumin 3.6 g/dL (3.2-4.8); Alkaline Phosphatase 56 U/L (46-116); Anion Gap 7 (5-15); BUN/Creatinine Ratio 8.3 (10.0-20.0); Carbon Dioxide 21 mmol/L (20-31); Magnesium 1.8 mg/dL (1.6-2.6); Potassium 3.6 mmol/L (3.5-5.1); Sodium 136 mmol/L (136-145); Total Protein 5.7 g/dL (5.7-8.2)
[2024-06-03 06:32] LABS: Bilirubin, Total 0.4 mg/dL (0.2-1.0)
[2024-06-03 06:33] LABS: Alanine Aminotransferase < 9 U/L (7-40); Aspartate Aminotransferase 10 U/L (13-40); Blood Urea Nitrogen 5 mg/dL (9-23); Chloride 108 mmol/L (98-107); Glucose 72 mg/dL (74-106)
--- NOTE | 2024-06-03 08:58 | DVHDSRES ---
Discharge Summary Date of Admission Resident Creating Document: NUVIA YADAV RESIDENT May 31, 2024 at 13:13 Date of Discharge: Jun 03, 2024 Admitting Diagnosis Intractable acute abdominal pain due Acute pancreatitis Labs/Diagnostic Data: Laboratory Results Test 06/03/24 05:48 06/02/24 15:00 06/02/24 06:15 06/01/24 06:07 White Blood Count 9.4 10^3/uL (4.4-10.8) Red Blood Count 3.57 10^6/uL (4.0-5.20) Hemoglobin 12.4 g/dL (12.2-16.2) Hematocrit 35.2 % (36.0-46.0) Mean Corpuscular Volume 98.5 fL (80.0-100.0) Mean Corpuscular Hemoglobin 34.6 pg (28.0-32.0) Mean Corpuscular Hemoglobin Concent 35.2 g/dL (32.0-36.0) Red Cell Distribution Width 13.7 % (11.8-14.3) Platelet Count 222 10^3/uL (140-450) Mean Platelet Volume 7.5 fL (6.9-10.8) Neutrophils (%) (Auto) 69.4 % (37.0-80.0) Lymphocytes (%) (Auto) 16.0 % (10.0-50.0) Monocytes (%) (Auto) 9.8 % (0.0-12.0) Eosinophils (%) (Auto) 4.6 % (0.0-7.0) Basophils (%) (Auto) 0.2 % (0.0-2.0) Neutrophils # (Auto) 6.5 10 ^3/uL (1.6-8.6) Lymphocytes # (Auto) 1.5 10 ^3/uL (0.4-5.4) Monocytes # (Auto) 0.9 10 ^3/uL (0-1.3) Eosinophils # (Auto) 0.4 10 ^3/uL (0-0.8) Basophils # (Auto) 0 10 ^3/uL (0-0.2) Nucleated Red Blood Cells 0.2 % Sodium Level 136 mmol/L (136-145) Potassium Level 3.6 mmol/L (3.5-5.1) Chloride Level 108 mmol/L (98-107) Carbon Dioxide Level 21 mmol/L (20-31) Anion Gap 7 (5-15) Blood Urea Nitrogen 5 mg/dL (9-23) Creatinine 0.60 mg/dL (0.550-1.02) Glomerular Filtration Rate Calc 120 mL/min (>90) BUN/Creatinine Ratio 8.3 (10.0-20.0) Serum Glucose 72 mg/dL (74-106) Calcium Level 9.0 mg/dL (8.7-10.4) Magnesium Level 1.8 mg/dL (1.6-2.6) Total Bilirubin 0.4 mg/dL (0.2-1.0) Aspartate Amino Transferase (AST) 10 U/L (13-40) Alanine Aminotransferase (ALT) < 9 U/L (7-40) Alkaline Phosphatase 56 U/L (46-116) Total Protein 5.7 g/dL (5.7-8.2) Albumin 3.6 g/dL (3.2-4.8) Urine Test Negative (Negative) Hemoglobin A1c 4.6 % A1C (<5.7) Thyroid Stimulating Hormone (TSH) 1.24 uIU/mL (0.55-4.78) Triglycerides Level 115 mg/dL (< 150) Cholesterol Level 98 mg/dL (< 200) LDL Cholesterol 46 mg/dL (< 100) HDL Cholesterol 37 mg/dL (40-59) Test 05/31/24 08:56 05/31/24 08:30 Amylase Level 342 U/L (30-118) Lipase 954 U/L (12-53) Urine Color Light-orange (Yellow) Urine Clarity Turbid (Clear) Urine pH 7.5 (5.0-9.0) Urine Specific Nelson 1.022 (1.001-1.035) Urine Protein 1+ (Negative) Urine Ketones 1+ (Negative) Urine Blood 2+ /uL (Negative) Urine Nitrite Negative (Negative) Urine Bilirubin Negative (Negative) Urine Urobilinogen Normal mg/dL (Negative) Urine Leukocyte Esterase Negative /uL (Negative) Urine RBC 26 /hpf (0 - 4) Urine Microscopic WBC 19 /HPF (0-5) Urine Squamous Epithelial Cells Many /hpf (<5) Urine Bacteria Few /hpf (None Seen) Urine Mucus Few (None Seen) Urine Glucose Trace mg/dL (Normal) Other Laboratory Tests 06/03/24 05:48 Brief Hx & Hospital Course: Patient is 34 years old female with past medical history of hiatal hernia came with a complaint of abdominal pain. As per patient patient started on Friday night which got worse on the Friday morning, sharp knife-like, 11/03, radiating to the back, associated with nausea and vomiting. Vomiting was mainly yellow fluid content, no blood, patient denied any fever, dysuria acute joint pain or swelling. Significant initial lab workup revealed lipase 954, potassium 2.6, CT abdomen-1. Findings consistent with acute pancreatitis. There is no evidence of organized fluid collection to suggest abscess.2. Cholelithiasis.3. Mild fatty infiltration of the liver. 4. 3.2 cm left ovarian cyst. Hospital course-Patient is 34 years old female with past medical history of hiatal hernia came with a complaint of abdominal pain. As per patient patient started on Friday night which got worse on the Friday morning, sharp knife- like, 11/03, radiating to the back, associated with nausea and vomiting. Vomiting was mainly yellow fluid content, no blood, patient denied any fever, dysuria acute joint pain or swelling. Significant initial lab workup revealed lipase 954, potassium 2.6, CT abdomen-1. Findings consistent with acute pancreatitis. There is no evidence of organized fluid collection to suggest abscess.2. Cholelithiasis.3. Mild fatty infiltration of the liver. 4. 3.2 cm left ovarian cyst. Ultrasound of the abdomen- Cholelithiasis without sonographic evidence acute cholecystitis . Patient was treated conservatively and symptoms improved gradually. Patient was able to tolerate liquid diet, patient is adamant about going home. Patient is being discharged home in hemodynamically stable condition. Patient was advised to follow up with the primary care physician in 1 week. Patient was also advised about the effect of alcohol and substance abuse on health. Patient verbalized understanding. Assessment acute intractable abdominal pain likely due to acute pancreatitis # acute pancreatitis # hypokalemia, supplemented # cholelithiasis, no acute cholecystitis # fatty liver likely due to alcoholism # ovarian cyst # substance abuse marijuana, alcoholism # smoker # history of hiatal hernia Discharge plan Pantoprazole 40 mg daily Multivitamin 1 tablet daily Please follow up with the primary care physician in 1 week Patient was counseled about the effect of smoking/substance abuse and alcoholism on health. Patient verbalized understanding Operations or Procedures [place] [id number] [facility] [id number] Ph: [phone] DIAGNOSTIC IMAGING Diagnostic Imaging Report : [id number] Signed PATIENT: ELIESER ANDREWS ACCT: [id number] UNIT: [id number] : 1990 LOC: ER ROOM / BED: / AGE / SEX: 34 / F ADM STATUS: REG ER SERVICE [id number] ORDERING PHYSICIAN: ANTONIA COATES MD PROCEDURE(s): ABPLIV - CT AB PEL WITH IV CON ONLY REASON: pancreatitis, severe abdominal pain ORDER NUMBER(s): [id number], ACCESSION NUMBER(s): [id number] Exam: CT CT AB PEL WITH IV CON ONLY History: pancreatitis, severe abdominal pain TECHNIQUE: Multiple contiguous axial CT images of the abdomen and pelvis were obtained with intravenous contrast. The images were reformatted to generate coronal and sagittal reconstructions. 100 cc of Omnipaque 350 contrast was injected intravenously. All CT scans at this medical facility are performed using dose modulation techniques as appropriate to a performed exam including the following:Automated exposure control was utilized; adjustment of the MA and/or KV according to patient size; and use of iterative reconstruction technique. Radiation Dose Information: CT Dose: CTDI volume is 8 mGy. Dose-length product is 439 mGy*cm Comparison: None FINDINGS: There is fat stranding and free fluid surrounding the pancreas compatible with acute pancreatitis. There is no evidence of organized fluid collection to suggest abscess. There is no discrete pancreatic cyst. Gallbladder is contracted with small gallstones. There is mild fatty infiltration of the liver. The kidneys, adrenal glands, and spleen appear within normal limits. There is no evidence of abdominal lymphadenopathy. There is small amount of free fluid in the abdomen tracking inferiorly from pancreas. There is no free intraperitoneal air. The stomach grossly appears unremarkable. The small and large bowel loops demonstrate normal caliber and distribution. The appendix is not seen in the right lower quadrant abdomen. There are no secondary signs of acute appendicitis. The abdominal aorta and IVC appear within normal limits. The bladder appears within normal limits the degree of distention. Uterus appears within normal limits. There is a 3.2 cm left ovarian cyst. There is no evidence of a pelvic mass or lymphadenopathy. There is no free fluid collection. Lung bases are clear. There is no acute osseous abnormality. IMPRESSION: 1. Findings consistent with acute pancreatitis. There is no evidence of organized fluid collection to suggest abscess. 2. Cholelithiasis. 3. Mild fatty infiltration of the liver. 4. 3.2 cm left ovarian cyst. HS:Y ATED BY: MICHEL HART MD DICTATED DATE/TIME: 05/31/24 105 SIGNED BY: MICHEL HART MD SIGNED DATE/TIME: 05/31/24 105 CC: Condition at Discharge: Stable Final Diagnosis/Problems List acute intractable abdominal pain likely due to acute pancreatitis # acute pancreatitis # hypokalemia, supplemented # cholelithiasis, no acute cholecystitis # fatty liver likely due to alcoholism # ovarian cyst # substance abuse marijuana, alcoholism # smoker # history of hiatal hernia Discharge Disposition: Home Discharge Instruct/Medications Diet: See Comment Diet comment: Low-fat diet Follow Up/Referral: Please follow up with the primary care physician in 1 week Patient was counseled about the effect of smoking/substance abuse and alcoholism on health. Patient verbalized understanding Please take liquid diet for next 5-7 days then gradually go to semi-solid to solid food Medications: Pantoprazole 40 mg daily Discharge Statement: "Patient was advised to return to the ER or call 911 if any headaches, dizziness, shortness of breath, chest pain, abdominal pain, bleeding, fevers, or worsening of medical condition. Patient was counseled about treatment plan, medications, possible side effects, patientverbalized understanding. All questions were answered to the best of my ability. This discharge took greater then 30 minutes in planning, reviewing documentation, counseling the patient, and discussing with other team members." ASSESSMENT ASSESSMENT Assessment NUVIA YADAV RESIDENT Jun 03, 2024 08:58
--- NOTE | 2024-06-03 09:02 | DVH ---
INDICATION: pancreatitis TECHNIQUE: Multiple real-time sonographic images were obtained of the right upper quadrant. COMPARISON: None FINDINGS: The liver demonstrates homogenous echotexture without focal mass lesions. The liver measure s 17 cm. There is no intrahepatic or extrahepatic ductal dilatation. The common duct measures 6 mm. Gallstones. The gallbladder wall measures 3 mm and is within normal limits. The right kidney measures 11.2 cm. The right kidney is normal in contour, size, and shape. The echog enicity is normal. There is no hydronephrosis. The pancreas is not well visualized due to overlying bowel gas. IMPRESSION: Cholelithiasis without sonographic evidence acute cholecystitis.
[2024-06-03 09:11] VITALS: BP 107/77; PULSE 89; RESP 20; TEMP 98.3; O2SAT 98
[2024-06-03] MEDS: ENOXAPARIN SOD 40 MG/0.4 ML SYRINGE SC SCH (09:47)
[2024-06-03] MEDS ORDERED: IBUP-1454 PO (11:39)
[2024-06-03] MEDS ORDERED: PANT40T PO (11:39)
[2024-06-03 12:59] VITALS: BP 112/71; PULSE 81; RESP 21; TEMP 98.3; O2SAT 99
[2024-06-03 13:14] VITALS: TEMP 36.8
[2024-06-03 15:46] LABS: Opiate Scree,Urine Pos (NEGATIVE)
[2024-06-03 15:51] LABS: Amphetamine Screen, Urine Neg (NEGATIVE); Barbiturate Scree,Urine Neg (NEGATIVE); Benzodiazephine Screen, Urine Neg (NEGATIVE); Cannabinoid Screen, Urine Neg (NEGATIVE); Cocaine Screen, Urine Neg (NEGATIVE); Phencyclidine Screen, Urine Neg (NEGATIVE)
== END 2024-06-03 14:01 | disposition home or self-care (01) | DRG 282 ==
LOC: EDUNIT# 08:31 → EDBD 08:31 → ER 08:31 → OVERFLOW 13:13 → EAST 13:20
PROVIDERS: ADMIT Student in an Organized Health Care Education/Training Program; ATTEND Student in an Organized Health Care Education/Training Program
DX: K85.90 Acute pancreatitis without necrosis or infection, unspecified (principal); K76.0 Fatty (change of) liver, not elsewhere classified; E87.6 Hypokalemia; K80.20 Calculus of gallbladder without cholecystitis without obstruction; F10.10 Alcohol abuse, uncomplicated; F12.10 Cannabis abuse, uncomplicated; N83.202 Unspecified ovarian cyst, left side; F17.200 Nicotine dependence, unspecified, uncomplicated
CPT/HCPCS: 36415; 74177; 76705; 80048; 80053; 80061; 80307; 81001; 81025; 82150; 83036; 83690; 83735; 84132; 84443; 85025; 96374; 96375; 96376; 99291; G0378; J1885; J2405; J2470; J3480